=== PATIENT | male | born 1985 | race Caucasian/White ===

== ENCOUNTER 2017-09-11 17:11 | Inpatient (IN) | payer OTHER ==
[2017-09-11] MEDS ORDERED: LACTATED RINGER'S 1,000 ML IV (17:26)
[2017-09-11 17:52] LABS: ABNORMAL IP MESSAGE 1; MEAN CORPUSCULAR HGB CONC 27.8 g/dl (32.0-37.0); MEAN CORPUSCULAR VOLUME 86.5 fl (82.0-101.0); MEAN PLATELET VOLUME 10.9 fl (7.4-10.4); NUCLEATED RED BLOOD CELLS% 1.2 /100WBC (0.0-0.0); PLATELET COUNT 845 10^3/UL (140-415); POSITIVE DIFF @See below; RED BLOOD COUNT 1.04 10^6/ul (4.70-6.10); RED CELL DISTRIBUTION WIDTH 17.5 % (11.5-14.5)
[2017-09-11 17:52] LABS: WHITE BLOOD COUNT 31.4 10^3/ul (4.8-10.8)
[2017-09-11 17:54] LABS: ALANINE AMINOTRANSFERASE 26 IU/L (13-69); ALBUMIN 2.3 g/dl (3.3-4.9); ALBUMIN/GLOBULIN RATIO 0.76; ALKALINE PHOSPHATASE 100 IU/L (42-121); ANION GAP 13 (8-16); ASPARTATE AMINO TRANSFERASE 47 IU/L (15-46); BILIRUBIN,INDIRECT 0.5 mg/dl (0-1.1); BILIRUBIN,TOTAL 0.5 mg/dl (0.2-1.3); BLOOD UREA NITROGEN 14 mg/dl (7-20); CALCIUM 7.5 mg/dl (8.4-10.2); CARBON DIOXIDE 20 mmol/L (21-31); CHLORIDE 105 mmol/L (97-110); CREATININE 0.62 mg/dl (0.61-1.24); GLUCOSE 132 mg/dl (70-220); LIPASE 912 U/L (23-300); POTASSIUM 3.5 mmol/L (3.5-5.1); SODIUM 134 mmol/L (135-144); TOTAL PROTEIN 5.3 g/dl (6.1-8.1)
[2017-09-11 17:55] LABS: LACTIC ACID 4.8 mmol/L (0.5-2.0)
[2017-09-11 17:56] LABS: ADD MAN DIFF? YES; HEMOGLOBIN 2.5 g/dl (14.0-18.0)
[2017-09-11 18:02] LABS: INR 1.32; PROTIME 16.6 Sec (11.9-14.9); PT RATIO 1.3
[2017-09-11 18:03] LABS: PARTIAL THROMBOPLASTIN TIME 21.6 Sec (25.0-35.0)
[2017-09-11] MEDS: ONDANSETRON 4 MG INJ IV (18:20)
[2017-09-11] MEDS: morphine 4 MG/ML VIAL IV (18:20)
[2017-09-11] MEDS: SOD CHLORIDE 0.9% 1,000 ML IV (18:20)
[2017-09-11 18:58] LABS: EOSINOPHILS # 0.6 10^3/ul (0.0-0.5); EOSINOPHILS % (M) 2 % (0.0-7.0); ERYTHROBLAST% (NRBC) (M) 6 % (0-0); LYMPHOCYTES # 1.9 10^3/ul (0.8-2.9); LYMPHOCYTES #M 1.8 10^3/ul (0.8-2.9); LYMPHOCYTES % (M) 6 % (15-51); MONOCYTE # 1.9 10^3/ul (0.3-0.9); MONOCYTE #M 1.8 10^3/ul (0.3-0.9); MONOCYTES % (M) 6 % (0-11); SEGMENTED NEUTROPHILS (M) % 86 % (39-77)
[2017-09-11 18:59] LABS: ANISOCYTOSIS 1+ (0-0); OVALOCYTES FEW (0-0); TEAR DROP CELLS FEW (0-0)
[2017-09-11 19:00] LABS: HYPOCHROMASIA 2+ (0-0)
[2017-09-11] MEDS ORDERED: VANCOMYCIN IV PER PHARMACY XX (19:30)
[2017-09-11] MEDS ORDERED: ONDANSETRON 4 MG INJ IV (19:30)
[2017-09-11] MEDS ORDERED: ACETAMINOPHEN 325 MG TAB PO (19:30)
[2017-09-11 19:44] LABS: RETICULOCYTE COUNT # 0.112 X10^6 (0.020-0.110); RETICULOCYTE COUNT % 10.4 % (0.5-1.5)
[2017-09-11 19:44] LABS: RETICULOCYTE RBC 1.07
[2017-09-11 19:45] LABS: LACTATE DEHYDROGENASE 651 IU/L (313-618)
[2017-09-11 19:46] LABS: IRON 17 ug/dl (35-150)
[2017-09-11 19:52] LABS: ADD UMIC NO; UR ASCORBIC ACID NEGATIVE (NEGATIVE); UR BILIRUBIN (Dip) NEGATIVE (NEGATIVE); UR BLOOD (Dip) NEGATIVE (NEGATIVE); UR CLARITY CLEAR (CLEAR); UR COLOR YELLOW (YELLOW); UR GLUCOSE (Dip) NEGATIVE (NEGATIVE); UR KETONES (Dip) NEGATIVE (NEGATIVE); UR LEUKOCYTE ESTERASE (Dip) NEGATIVE Leu/ul (NEGATIVE); UR NITRITE (Dip) NEGATIVE (NEGATIVE); UR SPECIFIC GRAVITY (Dip) 1.014 (1.003-1.030); UR TOTAL PROTEIN (Dip) NEGATIVE (NEGATIVE); UR UROBILINOGEN (Dip) 2+ mg/dL (NEGATIVE)
[2017-09-11 19:55] LABS: % IRON SATURATION 6 % SAT (22-52); TOTAL IRON BINDING CAPACITY 308 ug/dl (241-421)
[2017-09-11 20:23] LABS: FERRITIN 44.3 ng/ml (17.9-464.0)
[2017-09-11] MEDS: FAMOTIDINE 20 MG INJ IV (20:57)
[2017-09-11] MEDS: CEFTRIAXONE 1 GM/50 ML (PMX) 50 ML IVPB (20:58)
[2017-09-11] MEDS: CEFEPIME 1GM/50 ML (PMX) 50 ML IVPB (21:00)
[2017-09-11] MEDS ORDERED: ACETAMINOPHEN 650MG/20.3ML CUP PO (21:00)
[2017-09-11 21:21] LABS: ETHANOL < 10.0 mg/dl
[2017-09-11] MEDS: DEXTROSE 5%-0.45% NACL 1,000 ML IV (22:17)
[2017-09-11] MEDS: VANCOMYCIN 1.5 GM in SOD CHLORIDE 0.9% 250 ML IVPB (22:29)
[2017-09-11] MEDS: morphine 2 MG INJ IV (22:33)
[2017-09-12 00:42] LABS: IMMEDIATE SPIN CROSSMATCH 1 6
[2017-09-12 04:22] LABS: ADD MAN DIFF? NO
[2017-09-12] MEDS: morphine 2 MG INJ IV ×5 (04:23→20:05)
[2017-09-12 04:25] LABS: ABNORMAL IP MESSAGE 1; BASOPHILS % 0.1 % (0.0-2.0); EOSINOPHILS # 0.1 10^3/ul (0.0-0.5); EOSINOPHILS % 0.4 % (0.0-7.0); HEMATOCRIT 19.9 % (42.0-52.0); LYMPHOCYTES # 3.9 10^3/ul (0.8-2.9); LYMPHOCYTES % 18.9 % (15.0-51.0); MEAN CORPUSCULAR HGB CONC 32.7 g/dl (32.0-37.0); MEAN CORPUSCULAR VOLUME 85.8 fl (82.0-101.0); MEAN PLATELET VOLUME 9.7 fl (7.4-10.4); MONOCYTE # 1.8 10^3/ul (0.3-0.9); NEUTROPHIL # 14.1 10^3/ul (1.6-7.5); NEUTROPHILS % 69.4 % (39.0-77.0); NUCLEATED RED BLOOD CELLS # 0.2 10^3/ul (0.0-0.0); NUCLEATED RED BLOOD CELLS% 0.8 /100WBC (0.0-0.0); PLATELET COUNT 484 10^3/UL (140-415); POSITIVE DIFF @See below; RED BLOOD COUNT 2.32 10^6/ul (4.70-6.10); RED CELL DISTRIBUTION WIDTH 14.4 % (11.5-14.5)
[2017-09-12 04:25] LABS: WHITE BLOOD COUNT 20.4 10^3/ul (4.8-10.8)
[2017-09-12 04:29] LABS: HEMOGLOBIN 6.5 g/dl (14.0-18.0)
[2017-09-12] MEDS: SOD CHLORIDE 0.9% 500 ML IV (04:36)
[2017-09-12 04:55] LABS: LACTIC ACID 1.3 mmol/L (0.5-2.0)
[2017-09-12 04:55] LABS: CREATINE KINASE 80 IU/L (23-200)
[2017-09-12 05:07] LABS: CK INDEX 5.6
[2017-09-12 05:27] LABS: LIPASE 696 U/L (23-300)
[2017-09-12] MEDS: SOD CHLORIDE 0.9% 250 ML IV* (05:32)
[2017-09-12] MEDS ORDERED: PANTOPRAZOLE 40 MG INJ IV ×2 (06:00)
[2017-09-12 06:21] LABS: CREATINE KINASE 79 IU/L (23-200)
[2017-09-12] MEDS: VANCOMYCIN 1 GM 250 ML IVPB (06:21)
[2017-09-12 06:31] LABS: AMPHETAMINE/METHAMPHETAMINE Negative (NEGATIVE); BARBITURATES Negative (NEGATIVE); BENZODIAZEPINES Negative (NEGATIVE); CANNABINOIDS Positive (NEGATIVE); COCAINE Negative (NEGATIVE); OPIATES Positive (NEGATIVE)
[2017-09-12 06:33] LABS: CK INDEX 5.4
[2017-09-12] MEDS: DEXTROSE 5%-0.45% NACL 1,000 ML IV ×2 (08:02→12:26)
[2017-09-12] MEDS: PANTOPRAZOLE IV 80 MG in SOD CHLORIDE 0.9% 100 ML IV ×2 (08:02→16:40)
[2017-09-12] MEDS: FUROSEMIDE 40 MG INJ IV (09:06)
[2017-09-12] MEDS: METOPROLOL 25 MG TAB PO ×2 (10:05→20:04)
[2017-09-12 12:22] LABS: ADD MAN DIFF? NO
[2017-09-12] MEDS: BISACODYL (EC) 5 MG TAB PO (12:26)
[2017-09-12 12:29] LABS: ABNORMAL IP MESSAGE 1; BASOPHIL # 0.1 10^3/ul (0.0-0.1); BASOPHILS % 0.3 % (0.0-2.0); EOSINOPHILS # 0.2 10^3/ul (0.0-0.5); EOSINOPHILS % 0.9 % (0.0-7.0); HEMATOCRIT 28.4 % (42.0-52.0); HEMOGLOBIN 9.4 g/dl (14.0-18.0); LYMPHOCYTES % 9.6 % (15.0-51.0); MEAN CORPUSCULAR HEMOGLOBIN 29.4 pg (29.0-33.0); MEAN CORPUSCULAR HGB CONC 33.1 g/dl (32.0-37.0); MEAN CORPUSCULAR VOLUME 88.8 fl (82.0-101.0); MONOCYTE # 1.9 10^3/ul (0.3-0.9); MONOCYTES % 8.8 % (0.0-11.0); NEUTROPHIL # 16.5 10^3/ul (1.6-7.5); NEUTROPHILS % 77.6 % (39.0-77.0); NUCLEATED RED BLOOD CELLS # 0.3 10^3/ul (0.0-0.0); NUCLEATED RED BLOOD CELLS% 1.6 /100WBC (0.0-0.0); PLATELET COUNT 333 10^3/UL (140-415); POSITIVE DIFF @See below; RED CELL DISTRIBUTION WIDTH 14.5 % (11.5-14.5)
[2017-09-12 12:29] LABS: WHITE BLOOD COUNT 21.2 10^3/ul (4.8-10.8)
[2017-09-12] MEDS: SOD FERRIC GLUC COMPLX 125 MG in SOD CHLORIDE 0.9% 100 ML IVPB (16:40)
[2017-09-12] MEDS: MAGNESIUM CITRATE 300 ML BTL PO (17:48)
[2017-09-12] MEDS: POLYETHYLENE GLYCOL 3350 119 GM POWDER PO (17:54)
[2017-09-12 19:14] LABS: ADD MAN DIFF? NO
[2017-09-12 19:17] LABS: ABNORMAL IP MESSAGE 1; BASOPHILS % 0.1 % (0.0-2.0); EOSINOPHILS # 0.2 10^3/ul (0.0-0.5); EOSINOPHILS % 0.7 % (0.0-7.0); HEMATOCRIT 28.4 % (42.0-52.0); HEMOGLOBIN 9.5 g/dl (14.0-18.0); LYMPHOCYTES # 2.3 10^3/ul (0.8-2.9); LYMPHOCYTES % 11.2 % (15.0-51.0); MEAN CORPUSCULAR HEMOGLOBIN 28.8 pg (29.0-33.0); MEAN CORPUSCULAR HGB CONC 33.5 g/dl (32.0-37.0); MEAN CORPUSCULAR VOLUME 86.1 fl (82.0-101.0); MEAN PLATELET VOLUME 9.4 fl (7.4-10.4); MONOCYTE # 1.8 10^3/ul (0.3-0.9); MONOCYTES % 8.8 % (0.0-11.0); NEUTROPHIL # 15.5 10^3/ul (1.6-7.5); NEUTROPHILS % 77.1 % (39.0-77.0); NUCLEATED RED BLOOD CELLS # 0.3 10^3/ul (0.0-0.0); NUCLEATED RED BLOOD CELLS% 1.4 /100WBC (0.0-0.0); PLATELET COUNT 329 10^3/UL (140-415); POSITIVE DIFF @See below; RED CELL DISTRIBUTION WIDTH 14.6 % (11.5-14.5)
[2017-09-12 19:17] LABS: WHITE BLOOD COUNT 20.1 10^3/ul (4.8-10.8)
[2017-09-12 20:05] LABS: HEPATITIS B SURFACE ANTIGEN NEGATIVE (NEGATIVE)
[2017-09-12 20:23] LABS: HEPATITIS B CORE ANTIBODY NEGATIVE (NEGATIVE); HEPATITIS C VIRAL ANTIBODY NEGATIVE (NEGATIVE)
[2017-09-12] MEDS: ONDANSETRON 4 MG INJ IV (20:28)
[2017-09-12 20:41] LABS: FOLATE 4.7 ng/ml (2.8-20.0)
[2017-09-12 23:18] LABS: ADD MAN DIFF? NO
[2017-09-12 23:19] LABS: WHITE BLOOD COUNT 21.7 10^3/ul (4.8-10.8)
[2017-09-12 23:19] LABS: ABNORMAL IP MESSAGE 1; BASOPHIL # 0.1 10^3/ul (0.0-0.1); BASOPHILS % 0.2 % (0.0-2.0); EOSINOPHILS # 0.1 10^3/ul (0.0-0.5); EOSINOPHILS % 0.6 % (0.0-7.0); HEMATOCRIT 28.9 % (42.0-52.0); HEMOGLOBIN 9.9 g/dl (14.0-18.0); LYMPHOCYTES # 1.9 10^3/ul (0.8-2.9); LYMPHOCYTES % 8.8 % (15.0-51.0); MEAN CORPUSCULAR HGB CONC 34.3 g/dl (32.0-37.0); MEAN CORPUSCULAR VOLUME 84.8 fl (82.0-101.0); MEAN PLATELET VOLUME 9.5 fl (7.4-10.4); MONOCYTES % 9.3 % (0.0-11.0); NEUTROPHIL # 17.1 10^3/ul (1.6-7.5); NUCLEATED RED BLOOD CELLS # 0.2 10^3/ul (0.0-0.0); NUCLEATED RED BLOOD CELLS% 1.1 /100WBC (0.0-0.0); PLATELET COUNT 310 10^3/UL (140-415); POSITIVE DIFF @See below; RED BLOOD COUNT 3.41 10^6/ul (4.70-6.10); RED CELL DISTRIBUTION WIDTH 14.4 % (11.5-14.5)
[2017-09-13] MEDS: morphine 2 MG INJ IV ×6 (01:07→21:54)
[2017-09-13] MEDS: PANTOPRAZOLE IV 80 MG in SOD CHLORIDE 0.9% 100 ML IV ×3 (03:59→22:02)
[2017-09-13] MEDS: DEXTROSE 5%-0.45% NACL 1,000 ML IV (03:59)
[2017-09-13] MEDS: POLYETHYLENE GLYCOL 3350 119 GM POWDER PO (05:52)
[2017-09-13] MEDS: METOPROLOL 25 MG TAB PO ×3 (09:00→21:54)
[2017-09-13] MEDS: BISACODYL (EC) 5 MG TAB PO (09:00)
[2017-09-13] MEDS: NITROGLYCERIN AEROSOL (4.9 GM) (12:24)
[2017-09-13] MEDS: IOHEXOL 350MG/ML 50 ML BTL (12:27)
[2017-09-13] MEDS: SOD CHLORIDE 0.9% 100 ML (12:27)
[2017-09-13] MEDS: IOHEXOL 100 ML (12:27)
[2017-09-13] MEDS: SOD FERRIC GLUC COMPLX 125 MG in SOD CHLORIDE 0.9% 100 ML IVPB (17:19)
[2017-09-13] MEDS ORDERED: HEPARIN 1000 UNITS/ML 10 ML INJ IV ×2 (18:00)
[2017-09-13] MEDS: HEPARIN 25000 UNITS/250 ML 250 ML IV (18:50)
[2017-09-13 18:51] LABS: TRANSFERRIN 202 mg/dL (188-341)
[2017-09-13] MEDS: HEPARIN 1000 UNITS/ML 10 ML INJ IV (18:51)
[2017-09-13 18:55] LABS: HEMATOCRIT 29.4 % (42.0-52.0); HEMOGLOBIN 9.8 g/dl (14.0-18.0)
[2017-09-13 19:15] LABS: PARTIAL THROMBOPLASTIN TIME 38.5 Sec (25.0-35.0)
[2017-09-14] MEDS: DEXTROSE 5%-0.45% NACL 1,000 ML IV ×2 (00:02→09:48)
[2017-09-14 00:37] LABS: PROTEIN, TOTAL 5.1 g/dL (6.1-8.1)
[2017-09-14 02:14] LABS: PARTIAL THROMBOPLASTIN TIME 121.9 Sec (25.0-35.0)
[2017-09-14] MEDS: morphine 2 MG INJ IV ×5 (02:34→20:08)
[2017-09-14] MEDS: HEPARIN 25000 UNITS/250 ML 250 ML IV ×2 (03:08→13:54)
[2017-09-14] MEDS: PANTOPRAZOLE IV 80 MG in SOD CHLORIDE 0.9% 100 ML IV ×2 (05:22→15:50)
[2017-09-14] MEDS ORDERED: PANTOPRAZOLE 40 MG INJ IV (06:00)
[2017-09-14] MEDS: METOPROLOL 25 MG TAB PO ×2 (08:15→20:07)
[2017-09-14 09:44] LABS: ADD MAN DIFF? NO
[2017-09-14 09:47] LABS: ABNORMAL IP MESSAGE 1; BASOPHIL # 0.1 10^3/ul (0.0-0.1); BASOPHILS % 0.4 % (0.0-2.0); EOSINOPHILS # 0.2 10^3/ul (0.0-0.5); HEMATOCRIT 26.5 % (42.0-52.0); HEMOGLOBIN 8.8 g/dl (14.0-18.0); LYMPHOCYTES # 2.1 10^3/ul (0.8-2.9); LYMPHOCYTES % 12.7 % (15.0-51.0); MEAN CORPUSCULAR HGB CONC 33.2 g/dl (32.0-37.0); MEAN CORPUSCULAR VOLUME 87.5 fl (82.0-101.0); MEAN PLATELET VOLUME 10.3 fl (7.4-10.4); MONOCYTE # 1.6 10^3/ul (0.3-0.9); MONOCYTES % 9.7 % (0.0-11.0); NUCLEATED RED BLOOD CELLS # 0.1 10^3/ul (0.0-0.0); NUCLEATED RED BLOOD CELLS% 0.6 /100WBC (0.0-0.0); PLATELET COUNT 275 10^3/UL (140-415); POSITIVE DIFF @See below; RED BLOOD COUNT 3.03 10^6/ul (4.70-6.10); RED CELL DISTRIBUTION WIDTH 14.9 % (11.5-14.5)
[2017-09-14 09:47] LABS: WHITE BLOOD COUNT 16.6 10^3/ul (4.8-10.8)
[2017-09-14 10:06] LABS: ALANINE AMINOTRANSFERASE 41 IU/L (13-69); ALBUMIN 1.9 g/dl (3.3-4.9); ALKALINE PHOSPHATASE 104 IU/L (42-121); ANION GAP 5 (8-16); ASPARTATE AMINO TRANSFERASE 42 IU/L (15-46); BILIRUBIN,INDIRECT 0.5 mg/dl (0-1.1); BILIRUBIN,TOTAL 0.5 mg/dl (0.2-1.3); CALCIUM 7.1 mg/dl (8.4-10.2); CARBON DIOXIDE 24 mmol/L (21-31); CHLORIDE 109 mmol/L (97-110); CREATININE 0.52 mg/dl (0.61-1.24); GLUCOSE 84 mg/dl (70-220); POTASSIUM 3.6 mmol/L (3.5-5.1); SODIUM 134 mmol/L (135-144); TOTAL PROTEIN 4.6 g/dl (6.1-8.1)
[2017-09-14 10:12] LABS: BLOOD UREA NITROGEN < 2 mg/dl (7-20)
[2017-09-14 10:45] LABS: PARTIAL THROMBOPLASTIN TIME 81.5 Sec (25.0-35.0)
[2017-09-14] MEDS: BARIUM SULF 2% 450 ML BTL (BERRY SMOOTHIE) PO (12:47)
[2017-09-14] MEDS: SOD CHLORIDE 0.9% 100 ML (16:32)
[2017-09-14] MEDS: IOHEXOL 300MG/ML 150 ML BTL (16:32)
[2017-09-14] MEDS: SOD FERRIC GLUC COMPLX 125 MG in SOD CHLORIDE 0.9% 100 ML IVPB (17:14)
[2017-09-14 17:29] LABS: HEMATOCRIT 28.3 % (42.0-52.0); HEMOGLOBIN 9.3 g/dl (14.0-18.0)
[2017-09-14 17:50] LABS: PARTIAL THROMBOPLASTIN TIME 37.2 Sec (25.0-35.0)
[2017-09-14] MEDS ORDERED: RIVAROXABAN 15 MG TABLET PO (18:05)
[2017-09-14] MEDS: ENOXAPARIN 100 MG/ML SYG SC (20:12)
[2017-09-14 23:12] LABS: ALBUMIN 2.2 g/dL (3.8-4.8); ALPHA-1-GLOBULINS 0.5 g/dL (0.2-0.3); ALPHA-2-GLOBULINS 0.6 g/dL (0.5-0.9); BETA 2 GLOBULINS 0.4 g/dL (0.2-0.5); BETA GLOBULINS 0.4 g/dL (0.4-0.6); GAMMA GLOBULINS 1.1 g/dL (0.8-1.7)
[2017-09-14 23:19] LABS: HEMATOCRIT 27.6 % (42.0-52.0); HEMOGLOBIN 9.2 g/dl (14.0-18.0)
[2017-09-15] MEDS: morphine 2 MG INJ IV ×4 (00:20→12:30)
[2017-09-15] MEDS: PANTOPRAZOLE IV 80 MG in SOD CHLORIDE 0.9% 100 ML IV ×2 (01:30→11:46)
[2017-09-15] MEDS: SOD CHLORIDE 0.9% 1,000 ML IV (02:21)
[2017-09-15 06:11] LABS: ADD MAN DIFF? NO
[2017-09-15 06:20] LABS: WHITE BLOOD COUNT 16.5 10^3/ul (4.8-10.8)
[2017-09-15 06:20] LABS: BASOPHIL # 0.1 10^3/ul (0.0-0.1); BASOPHILS % 0.4 % (0.0-2.0); EOSINOPHILS # 0.1 10^3/ul (0.0-0.5); EOSINOPHILS % 0.7 % (0.0-7.0); HEMATOCRIT 30.5 % (42.0-52.0); HEMOGLOBIN 9.9 g/dl (14.0-18.0); LYMPHOCYTES # 1.4 10^3/ul (0.8-2.9); LYMPHOCYTES % 8.7 % (15.0-51.0); MEAN CORPUSCULAR HGB CONC 32.5 g/dl (32.0-37.0); MEAN CORPUSCULAR VOLUME 89.4 fl (82.0-101.0); MEAN PLATELET VOLUME 10.7 fl (7.4-10.4); MONOCYTE # 1.4 10^3/ul (0.3-0.9); MONOCYTES % 8.3 % (0.0-11.0); NEUTROPHIL # 12.8 10^3/ul (1.6-7.5); NEUTROPHILS % 77.4 % (39.0-77.0); NUCLEATED RED BLOOD CELLS # 0.1 10^3/ul (0.0-0.0); NUCLEATED RED BLOOD CELLS% 0.3 /100WBC (0.0-0.0); PLATELET COUNT 287 10^3/UL (140-415); RED BLOOD COUNT 3.41 10^6/ul (4.70-6.10); RED CELL DISTRIBUTION WIDTH 16.6 % (11.5-14.5)
[2017-09-15 06:40] LABS: LIPASE 284 U/L (23-300)
[2017-09-15 06:49] LABS: ALANINE AMINOTRANSFERASE 33 IU/L (13-69); ALBUMIN/GLOBULIN RATIO 0.71; ALKALINE PHOSPHATASE 92 IU/L (42-121); ANION GAP 6 (8-16); ASPARTATE AMINO TRANSFERASE 35 IU/L (15-46); BILIRUBIN,INDIRECT 0.6 mg/dl (0-1.1); BILIRUBIN,TOTAL 0.6 mg/dl (0.2-1.3); CALCIUM 7.3 mg/dl (8.4-10.2); CARBON DIOXIDE 20 mmol/L (21-31); CHLORIDE 112 mmol/L (97-110); CREATININE 0.43 mg/dl (0.61-1.24); GLUCOSE 85 mg/dl (70-220); SODIUM 135 mmol/L (135-144); TOTAL PROTEIN 4.8 g/dl (6.1-8.1)
[2017-09-15 06:58] LABS: BLOOD UREA NITROGEN < 2 mg/dl (7-20)
[2017-09-15 07:01] LABS: POTASSIUM 2.8 mmol/L (3.5-5.1)
[2017-09-15 07:44] LABS: MAGNESIUM 2.2 mg/dl (1.7-2.5)
[2017-09-15] MEDS: MAGNESIUM SULFATE 1 GM/D5W 100 ML IVPB (08:22)
[2017-09-15] MEDS: POTASSIUM CHLORIDE 100 ML IVPB ×4 (08:22→14:08)
[2017-09-15] MEDS: METOPROLOL 25 MG TAB PO ×2 (08:23→21:00)
[2017-09-15] MEDS: ENOXAPARIN 100 MG/ML SYG SC ×2 (08:37→21:15)
[2017-09-15] MEDS ORDERED: morphine 10 MG INJ IV (14:30)
[2017-09-15] MEDS: oxyCODONE (CR) 10 MG TAB [oxyCONTIN] PO (15:20)
[2017-09-15] MEDS: PANTOPRAZOLE (EC) 40 MG TAB PO (17:10)
[2017-09-15] MEDS: morphine LIQ (10 MG/5 ML) CUP PO ×2 (17:13→21:06)
[2017-09-16] MEDS: oxyCODONE (CR) 10 MG TAB [oxyCONTIN] PO ×3 (01:00→20:35)
[2017-09-16] MEDS: morphine LIQ (10 MG/5 ML) CUP PO ×6 (01:04→21:34)
[2017-09-16] MEDS: METOPROLOL 25 MG TAB PO ×3 (01:06→20:35)
[2017-09-16] MEDS: PANTOPRAZOLE (EC) 40 MG TAB PO ×2 (06:04→17:22)
[2017-09-16 07:11] LABS: WHITE BLOOD COUNT 26.2 10^3/ul (4.8-10.8)
[2017-09-16 07:11] LABS: ABNORMAL IP MESSAGE 1; HEMATOCRIT 31.1 % (42.0-52.0); HEMOGLOBIN 10.4 g/dl (14.0-18.0); MEAN CORPUSCULAR HEMOGLOBIN 29.5 pg (29.0-33.0); MEAN CORPUSCULAR HGB CONC 33.4 g/dl (32.0-37.0); MEAN CORPUSCULAR VOLUME 88.4 fl (82.0-101.0); MEAN PLATELET VOLUME 10.7 fl (7.4-10.4); PLATELET COUNT 324 10^3/UL (140-415); POSITIVE DIFF @See below; RED BLOOD COUNT 3.52 10^6/ul (4.70-6.10); RED CELL DISTRIBUTION WIDTH 17.6 % (11.5-14.5)
[2017-09-16 07:14] LABS: ADD MAN DIFF? YES
[2017-09-16 07:39] LABS: ALANINE AMINOTRANSFERASE 29 IU/L (13-69); ALBUMIN 2.1 g/dl (3.3-4.9); ALKALINE PHOSPHATASE 98 IU/L (42-121); ANION GAP 10 (8-16); ASPARTATE AMINO TRANSFERASE 33 IU/L (15-46); BILIRUBIN,INDIRECT 0.9 mg/dl (0-1.1); BILIRUBIN,TOTAL 0.9 mg/dl (0.2-1.3); BLOOD UREA NITROGEN 2 mg/dl (7-20); CALCIUM 7.4 mg/dl (8.4-10.2); CARBON DIOXIDE 20 mmol/L (21-31); CHLORIDE 107 mmol/L (97-110); CREATININE 0.45 mg/dl (0.61-1.24); GLUCOSE 83 mg/dl (70-220); POTASSIUM 3.2 mmol/L (3.5-5.1); SODIUM 134 mmol/L (135-144); TOTAL PROTEIN 5.1 g/dl (6.1-8.1)
[2017-09-16] MEDS: BISACODYL (EC) 5 MG TAB PO ×2 (08:29→17:22)
[2017-09-16] MEDS: POLYETHYLENE GLYCOL 3350 119 GM POWDER PO ×2 (08:29→16:03)
[2017-09-16] MEDS: POTASSIUM CHLORIDE (SR) 20 MEQ TAB PO (08:30)
[2017-09-16 08:34] LABS: ANISOCYTOSIS 2+ (0-0); BAND NEUTROPHILS #M 0.2 10^3/ul (0.0-0.6); BAND NEUTROPHILS % (M) 1 % (0-4); EOSINOPHILS % (M) 2 % (0-7); GIANT THROMBO% (M) 3 % (0-0); LYMPHOCYTES #M 0.7 10^3/ul (0.8-2.9); LYMPHOCYTES % (M) 3 % (15-51); METAMYELOCYTES #M 0.2 10^3/ul (0.0-0.0); METAMYELOCYTES %M 1 % (0-0); MONOCYTE #M 0.7 10^3/ul (0.3-0.9); MONOCYTES % (M) 3 % (0-11); MYELOCYTES #M 0.5 10^3/ul (0.0-0.0); MYELOCYTES % (M) 2 % (0-0); OVALOCYTES 1+ (0-0); PLATELET ESTIMATE NORMAL; POIKILOCYTOSIS 1+ (0-0); POLYCHROMASIA 3+ (0-0); SEG NEUT #M 23.1 10^3/ul (1.6-7.5); SEGMENTED NEUTROPHILS (M) % 88 % (39-77); SMUDGE%M 10 % (0-0)
[2017-09-16] MEDS: ENOXAPARIN 100 MG/ML SYG SC ×2 (08:35→20:39)
[2017-09-16] MEDS: MAGNESIUM CITRATE 300 ML BTL PO (09:59)
[2017-09-16] MEDS: PHYTONADIONE 10 MG/ML INJ SC (14:21)
[2017-09-16] MEDS: CEFTRIAXONE 1 GM/50 ML (PMX) 50 ML IVPB (18:33)
[2017-09-16] MEDS: SPIRONOLACTONE 50 MG TAB PO (19:37)
[2017-09-17] MEDS: morphine LIQ (10 MG/5 ML) CUP PO ×5 (01:30→18:45)
[2017-09-17] MEDS: PANTOPRAZOLE (EC) 40 MG TAB PO ×2 (06:03→18:42)
[2017-09-17] MEDS: ENOXAPARIN 100 MG/ML SYG SC ×2 (07:07→21:11)
[2017-09-17] MEDS: oxyCODONE (CR) 10 MG TAB [oxyCONTIN] PO ×2 (09:00→21:06)
[2017-09-17] MEDS: FUROSEMIDE 20 MG TAB PO (09:05)
[2017-09-17] MEDS: SPIRONOLACTONE 50 MG TAB PO (09:05)
[2017-09-17] MEDS: METOPROLOL 25 MG TAB PO ×2 (09:05→21:06)
[2017-09-17] MEDS: POTASSIUM CHLORIDE (SR) 20 MEQ TAB PO (10:03)
[2017-09-17 12:23] LABS: ADD MAN DIFF? NO
[2017-09-17 12:29] LABS: ABNORMAL IP MESSAGE 1; BASOPHIL # 0.1 10^3/ul (0.0-0.1); BASOPHILS % 0.3 % (0.0-2.0); EOSINOPHILS # 0.2 10^3/ul (0.0-0.5); HEMATOCRIT 30.8 % (42.0-52.0); LYMPHOCYTES # 1.9 10^3/ul (0.8-2.9); LYMPHOCYTES % 9.1 % (15.0-51.0); MEAN CORPUSCULAR HEMOGLOBIN 29.7 pg (29.0-33.0); MEAN CORPUSCULAR HGB CONC 32.5 g/dl (32.0-37.0); MEAN CORPUSCULAR VOLUME 91.4 fl (82.0-101.0); MEAN PLATELET VOLUME 10.7 fl (7.4-10.4); MONOCYTE # 2.1 10^3/ul (0.3-0.9); MONOCYTES % 9.8 % (0.0-11.0); NEUTROPHIL # 16.2 10^3/ul (1.6-7.5); NEUTROPHILS % 76.8 % (39.0-77.0); PLATELET COUNT 324 10^3/UL (140-415); POSITIVE DIFF @See below; RED BLOOD COUNT 3.37 10^6/ul (4.70-6.10); RED CELL DISTRIBUTION WIDTH 18.2 % (11.5-14.5)
[2017-09-17 12:48] LABS: ANION GAP 8 (8-16); BLOOD UREA NITROGEN 2 mg/dl (7-20); CALCIUM 7.6 mg/dl (8.4-10.2); CARBON DIOXIDE 21 mmol/L (21-31); CHLORIDE 108 mmol/L (97-110); CREATININE 0.47 mg/dl (0.61-1.24); GLUCOSE 79 mg/dl (70-220); POTASSIUM 4.1 mmol/L (3.5-5.1); SODIUM 133 mmol/L (135-144)
[2017-09-17] MEDS: PROPOFOL 20 ML (16:52)
[2017-09-17] MEDS: FENTAnyl 50 MCG/ML VIAL (16:52)
[2017-09-17] MEDS: MIDAZOLAM 1 MG/ML 2 ML INJ (16:52)
[2017-09-17] MEDS: CEFTRIAXONE 1 GM/50 ML (PMX) 50 ML IVPB (18:43)
[2017-09-18] MEDS: morphine LIQ (10 MG/5 ML) CUP PO ×6 (00:48→21:28)
[2017-09-18] MEDS: PANTOPRAZOLE (EC) 40 MG TAB PO ×2 (05:33→18:04)
[2017-09-18 06:45] LABS: ADD MAN DIFF? NO
[2017-09-18 06:53] LABS: ABNORMAL IP MESSAGE 1; BASOPHIL # 0.1 10^3/ul (0.0-0.1); BASOPHILS % 0.3 % (0.0-2.0); EOSINOPHILS # 0.4 10^3/ul (0.0-0.5); HEMATOCRIT 29.9 % (42.0-52.0); HEMOGLOBIN 9.7 g/dl (14.0-18.0); LYMPHOCYTES # 2.1 10^3/ul (0.8-2.9); LYMPHOCYTES % 11.7 % (15.0-51.0); MEAN CORPUSCULAR HEMOGLOBIN 29.1 pg (29.0-33.0); MEAN CORPUSCULAR HGB CONC 32.4 g/dl (32.0-37.0); MEAN CORPUSCULAR VOLUME 89.8 fl (82.0-101.0); MEAN PLATELET VOLUME 10.8 fl (7.4-10.4); MONOCYTE # 1.7 10^3/ul (0.3-0.9); MONOCYTES % 9.5 % (0.0-11.0); NEUTROPHIL # 13.3 10^3/ul (1.6-7.5); NEUTROPHILS % 73.9 % (39.0-77.0); PLATELET COUNT 333 10^3/UL (140-415); POSITIVE DIFF @See below; RED BLOOD COUNT 3.33 10^6/ul (4.70-6.10); RED CELL DISTRIBUTION WIDTH 17.7 % (11.5-14.5)
[2017-09-18 07:13] LABS: ANION GAP 10 (8-16); CALCIUM 7.4 mg/dl (8.4-10.2); CARBON DIOXIDE 21 mmol/L (21-31); CHLORIDE 107 mmol/L (97-110); CREATININE 0.43 mg/dl (0.61-1.24); GLUCOSE 86 mg/dl (70-220); MAGNESIUM 1.6 mg/dl (1.7-2.5); POTASSIUM 3.5 mmol/L (3.5-5.1); SODIUM 134 mmol/L (135-144)
[2017-09-18 07:20] LABS: BLOOD UREA NITROGEN < 2 mg/dl (7-20)
[2017-09-18 07:39] LABS: CARCINOEMBRYONIC ANTIGEN 0.8 ng/ml (0.0-5.0)
[2017-09-18 07:44] LABS: CANCER ANTIGEN 19-9 52.9 U/ml (0.0-37.0)
[2017-09-18 07:46] LABS: ALPHA FETOPROTEIN 1.77 IU/L (0.00-7.21)
[2017-09-18] MEDS: SPIRONOLACTONE 50 MG TAB PO (08:49)
[2017-09-18] MEDS: FUROSEMIDE 20 MG TAB PO (08:50)
[2017-09-18] MEDS: METOPROLOL 25 MG TAB PO ×2 (08:50→20:14)
[2017-09-18] MEDS: ENOXAPARIN 100 MG/ML SYG SC (08:51)
[2017-09-18] MEDS: oxyCODONE (CR) 10 MG TAB [oxyCONTIN] PO ×2 (08:55→20:15)
[2017-09-18] MEDS: POTASSIUM CHLORIDE (SR) 20 MEQ TAB PO (10:51)
[2017-09-18] MEDS: MAGNESIUM SULFATE 2 GM/50 ML 50 ML IVPB (10:52)
[2017-09-18] MEDS: ONDANSETRON 4 MG INJ IV (11:09)
[2017-09-18] MEDS: LIDOCAINE 1% (MDV) 10 ML INJ (12:44)
[2017-09-18 14:46] LABS: FLD MN% 42.7 %; FLD PMN% 57.3 %; FLD RBC 2000 /uL; FLD WBC 1154 /cmm
[2017-09-18 14:53] LABS: FLUID LD 290 U/L; FLUID TYPE PARACENTESIS FLUID
[2017-09-18 15:38] LABS: FLD TYPE PARACENTHESIS
[2017-09-18 15:39] LABS: FLD CLARITY CLOUDY; FLD COLOR YELLOW
[2017-09-18] MEDS: CEFTRIAXONE 1 GM/50 ML (PMX) 50 ML IVPB (18:03)
[2017-09-18] MEDS: RIVAROXABAN 15 MG TABLET PO (18:04)
[2017-09-19] MEDS: morphine LIQ (10 MG/5 ML) CUP PO ×5 (01:35→18:36)
[2017-09-19] MEDS: PANTOPRAZOLE (EC) 40 MG TAB PO ×2 (06:33→18:36)
[2017-09-19 08:04] LABS: ADD MAN DIFF? NO
[2017-09-19 08:07] LABS: WHITE BLOOD COUNT 9.4 10^3/ul (4.8-10.8)
[2017-09-19 08:07] LABS: BASOPHILS % 0.3 % (0.0-2.0); EOSINOPHILS # 0.2 10^3/ul (0.0-0.5); EOSINOPHILS % 2.3 % (0.0-7.0); HEMATOCRIT 29.3 % (42.0-52.0); HEMOGLOBIN 9.4 g/dl (14.0-18.0); LYMPHOCYTES # 1.4 10^3/ul (0.8-2.9); LYMPHOCYTES % 14.7 % (15.0-51.0); MEAN CORPUSCULAR HEMOGLOBIN 29.3 pg (29.0-33.0); MEAN CORPUSCULAR HGB CONC 32.1 g/dl (32.0-37.0); MEAN CORPUSCULAR VOLUME 91.3 fl (82.0-101.0); MEAN PLATELET VOLUME 10.6 fl (7.4-10.4); MONOCYTE # 0.8 10^3/ul (0.3-0.9); MONOCYTES % 8.9 % (0.0-11.0); NEUTROPHIL # 6.8 10^3/ul (1.6-7.5); NEUTROPHILS % 72.5 % (39.0-77.0); PLATELET COUNT 252 10^3/UL (140-415); RED BLOOD COUNT 3.21 10^6/ul (4.70-6.10); RED CELL DISTRIBUTION WIDTH 17.4 % (11.5-14.5)
[2017-09-19 08:33] LABS: ANION GAP 8 (8-16); CALCIUM 7.1 mg/dl (8.4-10.2); CARBON DIOXIDE 21 mmol/L (21-31); CHLORIDE 107 mmol/L (97-110); CREATININE 0.39 mg/dl (0.61-1.24); GLUCOSE 99 mg/dl (70-220); POTASSIUM 3.3 mmol/L (3.5-5.1); SODIUM 133 mmol/L (135-144)
[2017-09-19 08:36] LABS: BLOOD UREA NITROGEN < 2 mg/dl (7-20)
[2017-09-19] MEDS: METOPROLOL 25 MG TAB PO (09:26)
[2017-09-19] MEDS: SPIRONOLACTONE 50 MG TAB PO (09:26)
[2017-09-19] MEDS: oxyCODONE (CR) 10 MG TAB [oxyCONTIN] PO ×2 (09:26→10:55)
[2017-09-19] MEDS: RIVAROXABAN 15 MG TABLET PO ×2 (09:27→18:36)
[2017-09-19] MEDS: FUROSEMIDE 20 MG TAB PO (09:27)
[2017-09-19] MEDS: POTASSIUM CHLORIDE (SR) 20 MEQ TAB PO (10:54)
[2017-09-19] MEDS: CEFTRIAXONE 1 GM/50 ML (PMX) 50 ML IVPB (18:30)
[2017-09-21 18:02] LABS: DRVVT CONFIRMATION NEGATIVE (NEGATIVE); HEXAGONAL PHASE CONFIRMATION POSITIVE (NEGATIVE); THROMBIN CLOTTING TIME 21 sec (13-19)
[2017-09-22 20:21] LABS: ANTI-THROMBIN III 16 mg/dL (19-30)
== END 2017-09-19 20:11 | disposition home or self-care (01) | DRG 377 ==
LOC: ICU 21:12 → MS4 09-13 11:39 → E/R 17:11 → ICU 19:14
PROC: 0DJD8ZZ Inspection of Lower Intestinal Tract, Via Natural or Artificial Opening Endoscopic (ICD-10-PCS; principal; 2017-09-17 15:11)
PROC: 0DB98ZX Excision of Duodenum, Via Natural or Artificial Opening Endoscopic, Diagnostic (ICD-10-PCS; 2017-09-17 15:11)
PROC: 0DB78ZX Excision of Stomach, Pylorus, Via Natural or Artificial Opening Endoscopic, Diagnostic (ICD-10-PCS; 2017-09-17 15:11)
PROC: 0DB68ZX Excision of Stomach, Via Natural or Artificial Opening Endoscopic, Diagnostic (ICD-10-PCS; 2017-09-17 15:11)
PROC: 0W9G3ZX Drainage of Peritoneal Cavity, Percutaneous Approach, Diagnostic (ICD-10-PCS; 2017-09-17 15:11)
PROC: 30233N1 Transfusion of Nonautologous Red Blood Cells into Peripheral Vein, Percutaneous Approach (ICD-10-PCS; 2017-09-17 15:11)
PROC: 30233N1 Transfusion of Nonautologous Red Blood Cells into Peripheral Vein, Percutaneous Approach (ICD-10-PCS; 2017-09-17 15:11)
DX: K92.2 Gastrointestinal hemorrhage, unspecified (principal); I21.A1 Myocardial infarction type 2; I26.99 Other pulmonary embolism without acute cor pulmonale; K85.20 Alcohol induced acute pancreatitis without necrosis or infection; D62 Acute posthemorrhagic anemia; E87.2 Acidosis; I48.92 Unspecified atrial flutter; R65.10 Systemic inflammatory response syndrome (SIRS) of non-infectious origin without acute organ dysfunction; R16.1 Splenomegaly, not elsewhere classified; K70.31 Alcoholic cirrhosis of liver with ascites; D47.3 Essential (hemorrhagic) thrombocythemia; D50.0 Iron deficiency anemia secondary to blood loss (chronic); I10 Essential (primary) hypertension; G40.909 Epilepsy, unspecified, not intractable, without status epilepticus; E78.5 Hyperlipidemia, unspecified; F12.20 Cannabis dependence, uncomplicated; F10.20 Alcohol dependence, uncomplicated; K29.50 Unspecified chronic gastritis without bleeding; K44.9 Diaphragmatic hernia without obstruction or gangrene; Y90.0 Blood alcohol level of less than 20 mg/100 ml; E87.6 Hypokalemia; Z79.02 Long term (current) use of antithrombotics/antiplatelets
CPT/HCPCS: 36415; 36430; 71045; 71275; 74177; 74181; 75574; 80048; 80053; 80307; 81003; 82042; 82105; 82378; 82550; 82553; 82607; 82728; 82746; 83090; 83540; 83605; 83615; 83690; 83735; 84155; 84165; 84466; 84484; 85014; 85018; 85025; 85045; 85300; 85302; 85610; 85613; 85730; 86301; 86704; 86803; 86850; 86880; 86900; 86901; 86920; 87040; 87070; 87081; 87086; 87102; 87116; 87340; 88305; 88312; 89051; 93005; 93306; 93970; 96374; 96375; 97161; 99291-25

== ENCOUNTER 2017-10-21 17:44 | Inpatient (IN) | payer OTHER ==
[2017-10-21] MEDS: SOD CHLORIDE 0.9% 1,000 ML IV ×3 (18:30→23:15)
[2017-10-21] MEDS: PANTOPRAZOLE 40 MG INJ IV (18:30)
[2017-10-21] MEDS: morphine 4 MG/ML VIAL IV (18:32)
[2017-10-21 18:39] LABS: HEMATOCRIT 39.2 % (42.0-52.0); HEMOGLOBIN 12.4 g/dl (14.0-18.0); MEAN CORPUSCULAR HEMOGLOBIN 26.1 pg (29.0-33.0); MEAN CORPUSCULAR HGB CONC 31.6 g/dl (32.0-37.0); MEAN CORPUSCULAR VOLUME 82.4 fl (82.0-101.0); MEAN PLATELET VOLUME 8.9 fl (7.4-10.4); PLATELET COUNT 835 10^3/UL (140-415); RED BLOOD COUNT 4.76 10^6/ul (4.70-6.10); RED CELL DISTRIBUTION WIDTH 15.9 % (11.5-14.5)
[2017-10-21 18:39] LABS: WHITE BLOOD COUNT 13.3 10^3/ul (4.8-10.8)
[2017-10-21 18:43] LABS: ADD MAN DIFF? YES
[2017-10-21 18:57] LABS: ALANINE AMINOTRANSFERASE 32 IU/L (13-69); ALBUMIN/GLOBULIN RATIO 0.85; ALKALINE PHOSPHATASE 216 IU/L (42-121); ANION GAP 22 (8-16); ASPARTATE AMINO TRANSFERASE 88 IU/L (15-46); BILIRUBIN,INDIRECT 0.5 mg/dl (0-1.1); BILIRUBIN,TOTAL 0.5 mg/dl (0.2-1.3); BLOOD UREA NITROGEN 3 mg/dl (7-20); CALCIUM 9.1 mg/dl (8.4-10.2); CARBON DIOXIDE 23 mmol/L (21-31); CHLORIDE 109 mmol/L (97-110); CREATININE 0.63 mg/dl (0.61-1.24); GLUCOSE 141 mg/dl (70-220); LIPASE 624 U/L (23-300); POTASSIUM 4.1 mmol/L (3.5-5.1); SODIUM 150 mmol/L (135-144); TOTAL PROTEIN 8.7 g/dl (6.1-8.1)
[2017-10-21 18:59] LABS: INR 1.14; PROTIME 14.8 Sec (11.9-14.9); PT RATIO 1.2
[2017-10-21 19:00] LABS: PARTIAL THROMBOPLASTIN TIME 29.7 Sec (25.0-35.0)
[2017-10-21 19:09] LABS: BAND NEUTROPHILS #M 0.2 10^3/ul (0.0-0.6); BAND NEUTROPHILS % (M) 2 % (0-4); EOSINOPHILS % (M) 1 % (0-7); LYMPHOCYTES #M 4.3 10^3/ul (0.8-2.9); LYMPHOCYTES % (M) 33 % (15-51); MONOCYTE #M 0.3 10^3/ul (0.3-0.9); MONOCYTES % (M) 3 % (0-11); PLATELET ESTIMATE NORMAL; SEG NEUT #M 8.1 10^3/ul (1.6-7.5); SEGMENTED NEUTROPHILS (M) % 61 % (39-77); SMUDGE%M 14 % (0-0)
[2017-10-21 19:11] LABS: TROPONIN-I < 0.010 ng/ml (0.000-0.120)
[2017-10-21] MEDS: DEXTROSE 5%-LR 1,000 ML IV (19:36)
[2017-10-21] MEDS: SOD CHLORIDE 0.9% 100 ML (19:42)
[2017-10-21] MEDS: IOHEXOL 300MG/ML 150 ML BTL (19:42)
[2017-10-21 19:45] LABS: ADD UMIC NO; UR ASCORBIC ACID NEGATIVE (NEGATIVE); UR BILIRUBIN (Dip) NEGATIVE (NEGATIVE); UR BLOOD (Dip) NEGATIVE (NEGATIVE); UR CLARITY CLEAR (CLEAR); UR COLOR YELLOW (YELLOW); UR GLUCOSE (Dip) NEGATIVE (NEGATIVE); UR KETONES (Dip) NEGATIVE (NEGATIVE); UR LEUKOCYTE ESTERASE (Dip) NEGATIVE Leu/ul (NEGATIVE); UR NITRITE (Dip) NEGATIVE (NEGATIVE); UR SPECIFIC GRAVITY (Dip) 1.009 (1.003-1.030); UR TOTAL PROTEIN (Dip) NEGATIVE (NEGATIVE); UR UROBILINOGEN (Dip) 2+ mg/dL (NEGATIVE)
[2017-10-21] MEDS: HYDROmorphONE 0.5 MG/0.5 ML SYG IV ×2 (20:19→21:59)
[2017-10-21] MEDS ORDERED: ACETAMINOPHEN 325 MG TAB PO (21:30)
[2017-10-21] MEDS: METOCLOPRAMIDE 10 MG INJ IV (21:38)
[2017-10-21] MEDS: ONDANSETRON 4 MG INJ IV (21:59)
[2017-10-22] MEDS: traMADol 50 MG TAB PO ×3 (00:09→17:15)
[2017-10-22] MEDS: ONDANSETRON 4 MG INJ IV ×2 (00:59→13:04)
[2017-10-22] MEDS: morphine 2 MG INJ IV ×4 (01:32→15:17)
[2017-10-22] MEDS: SOD CHLORIDE 0.9% 1,000 ML IV ×2 (01:33→03:24)
[2017-10-22] MEDS: DEXTROSE 5% 1,000 ML IV (06:12)
[2017-10-22] MEDS ORDERED: DILTIAZEM-D5W 125MG/125ML DRIP 125 ML IV (07:00)
[2017-10-22 07:29] LABS: ADD MAN DIFF? NO
[2017-10-22 07:36] LABS: BASOPHILS % 0.2 % (0.0-2.0); HEMATOCRIT 30.8 % (42.0-52.0); HEMOGLOBIN 9.6 g/dl (14.0-18.0); LYMPHOCYTES # 0.9 10^3/ul (0.8-2.9); LYMPHOCYTES % 9.1 % (15.0-51.0); MEAN CORPUSCULAR HEMOGLOBIN 26.3 pg (29.0-33.0); MEAN CORPUSCULAR HGB CONC 31.2 g/dl (32.0-37.0); MEAN CORPUSCULAR VOLUME 84.4 fl (82.0-101.0); MONOCYTE # 0.8 10^3/ul (0.3-0.9); MONOCYTES % 8.1 % (0.0-11.0); NEUTROPHIL # 7.8 10^3/ul (1.6-7.5); NEUTROPHILS % 82.2 % (39.0-77.0); PLATELET COUNT 358 10^3/UL (140-415); RED BLOOD COUNT 3.65 10^6/ul (4.70-6.10); RED CELL DISTRIBUTION WIDTH 15.4 % (11.5-14.5)
[2017-10-22 07:36] LABS: WHITE BLOOD COUNT 9.4 10^3/ul (4.8-10.8)
[2017-10-22 08:19] LABS: ALANINE AMINOTRANSFERASE 21 IU/L (13-69); ALBUMIN 3.2 g/dl (3.3-4.9); ALKALINE PHOSPHATASE 177 IU/L (42-121); ANION GAP 17 (8-16); ASPARTATE AMINO TRANSFERASE 62 IU/L (15-46); BILIRUBIN,INDIRECT 0.8 mg/dl (0-1.1); BILIRUBIN,TOTAL 0.8 mg/dl (0.2-1.3); BLOOD UREA NITROGEN 2 mg/dl (7-20); CALCIUM 8.3 mg/dl (8.4-10.2); CARBON DIOXIDE 23 mmol/L (21-31); CHLORIDE 106 mmol/L (97-110); CREATININE 0.49 mg/dl (0.61-1.24); GLUCOSE 118 mg/dl (70-220); SODIUM 142 mmol/L (135-144); TOTAL PROTEIN 7.2 g/dl (6.1-8.1)
[2017-10-22] MEDS: FERROUS SULFATE (EC) 325 MG TAB PO ×2 (08:19→21:04)
[2017-10-22] MEDS: FUROSEMIDE 20 MG TAB PO (08:20)
[2017-10-22] MEDS: METOPROLOL 25 MG TAB PO ×2 (08:20→21:04)
[2017-10-22] MEDS: POTASSIUM CHLORIDE 20 MEQ POWDER FOR ORAL SOLN PO (08:21)
[2017-10-22] MEDS: SPIRONOLACTONE 50 MG TAB PO (09:00)
[2017-10-22] MEDS ORDERED: MEROPENEM 500MG/50 ML (PMX) 50 ML IVPB (10:30)
[2017-10-22] MEDS: HYDROCODONE/APAP (10/325) TAB PO (13:05)
[2017-10-22 18:35] LABS: FREE T4 (FREE THYROXINE) 1.08 ng/dl (0.79-2.35)
[2017-10-22] MEDS: HYDROmorphONE 1 MG/ML SYG IV (21:04)
[2017-10-23] MEDS: HYDROmorphONE 1 MG/ML SYG IV ×2 (01:13→05:29)
[2017-10-23 04:56] LABS: ADD MAN DIFF? NO
[2017-10-23 04:57] LABS: BASOPHILS % 0.2 % (0.0-2.0); EOSINOPHILS % 0.2 % (0.0-7.0); HEMATOCRIT 30.6 % (42.0-52.0); HEMOGLOBIN 9.8 g/dl (14.0-18.0); LYMPHOCYTES # 0.9 10^3/ul (0.8-2.9); LYMPHOCYTES % 10.4 % (15.0-51.0); MEAN CORPUSCULAR HEMOGLOBIN 26.9 pg (29.0-33.0); MEAN CORPUSCULAR VOLUME 84.1 fl (82.0-101.0); MEAN PLATELET VOLUME 9.1 fl (7.4-10.4); MONOCYTE # 0.6 10^3/ul (0.3-0.9); MONOCYTES % 6.9 % (0.0-11.0); NEUTROPHIL # 7.2 10^3/ul (1.6-7.5); PLATELET COUNT 242 10^3/UL (140-415); RED BLOOD COUNT 3.64 10^6/ul (4.70-6.10); RED CELL DISTRIBUTION WIDTH 15.3 % (11.5-14.5)
[2017-10-23 04:57] LABS: WHITE BLOOD COUNT 8.8 10^3/ul (4.8-10.8)
[2017-10-23 05:19] LABS: LIPASE 81 U/L (23-300)
[2017-10-23] MEDS: FERROUS SULFATE (EC) 325 MG TAB PO (08:21)
[2017-10-23] MEDS: POTASSIUM CHLORIDE 20 MEQ POWDER FOR ORAL SOLN PO (08:21)
[2017-10-23] MEDS: METOPROLOL 25 MG TAB PO (08:21)
[2017-10-23] MEDS: traMADol 50 MG TAB PO (12:13)
== END 2017-10-23 15:16 | disposition home or self-care (01) | DRG 439 ==
LOC: PP2 22:21 → E/R 17:44 → PP2 10-22 17:35 → MS4 21:29
DX: K85.20 Alcohol induced acute pancreatitis without necrosis or infection (principal); K86.3 Pseudocyst of pancreas; E87.0 Hyperosmolality and hypernatremia; I48.92 Unspecified atrial flutter; R65.10 Systemic inflammatory response syndrome (SIRS) of non-infectious origin without acute organ dysfunction; D50.9 Iron deficiency anemia, unspecified; F10.20 Alcohol dependence, uncomplicated; K70.31 Alcoholic cirrhosis of liver with ascites; E86.0 Dehydration; G40.909 Epilepsy, unspecified, not intractable, without status epilepticus; I10 Essential (primary) hypertension; E78.5 Hyperlipidemia, unspecified; F17.210 Nicotine dependence, cigarettes, uncomplicated; Z79.02 Long term (current) use of antithrombotics/antiplatelets; Z86.711 Personal history of pulmonary embolism
CPT/HCPCS: 36415; 74177; 80053; 81003; 83690; 84439; 84443; 84484; 85025; 85610; 85730; 86850; 86900; 86901; 87081; 93005; 96374; 96375; 99291-25

== ENCOUNTER 2018-03-01 17:47 | Emergency (ER) | payer OTHER ==
[2018-03-01 18:24] LABS: ADD MAN DIFF? NO
[2018-03-01 18:30] LABS: BASOPHILS % 0.6 % (0.0-2.0); EOSINOPHILS % 0.3 % (0.0-7.0); HEMATOCRIT 41.3 % (42.0-52.0); HEMOGLOBIN 14.1 g/dl (14.0-18.0); LYMPHOCYTES # 1.6 10^3/ul (0.8-2.9); MEAN CORPUSCULAR HEMOGLOBIN 27.8 pg (29.0-33.0); MEAN CORPUSCULAR HGB CONC 34.1 g/dl (32.0-37.0); MEAN CORPUSCULAR VOLUME 81.5 fl (82.0-101.0); MEAN PLATELET VOLUME 9.7 fl (7.4-10.4); MONOCYTE # 0.7 10^3/ul (0.3-0.9); MONOCYTES % 10.2 % (0.0-11.0); NEUTROPHIL # 4.4 10^3/ul (1.6-7.5); NEUTROPHILS % 64.6 % (39.0-77.0); PLATELET COUNT 428 10^3/UL (140-415); RED BLOOD COUNT 5.07 10^6/ul (4.70-6.10); RED CELL DISTRIBUTION WIDTH 15.7 % (11.5-14.5)
[2018-03-01 18:30] LABS: WHITE BLOOD COUNT 6.8 10^3/ul (4.8-10.8)
[2018-03-01] MEDS: LORAZEPAM 2 MG INJ IV (18:40)
[2018-03-01] MEDS: SOD CHLORIDE 0.9% 1,000 ML IV (18:41)
[2018-03-01] MEDS: ONDANSETRON 4 MG INJ IV (18:41)
[2018-03-01] MEDS: KETOROLAC 15 MG INJ IV (18:41)
[2018-03-01 18:49] LABS: INR 0.97
[2018-03-01 18:50] LABS: PARTIAL THROMBOPLASTIN TIME 24.3 Sec (23.0-35.0)
[2018-03-01 18:51] LABS: ALANINE AMINOTRANSFERASE 78 IU/L (13-69); ALBUMIN 4.5 g/dl (3.3-4.9); ALBUMIN/GLOBULIN RATIO 1.36; ALKALINE PHOSPHATASE 105 IU/L (42-121); ANION GAP 21 (5-13); ASPARTATE AMINO TRANSFERASE 84 IU/L (15-46); BILIRUBIN,INDIRECT 0.8 mg/dl (0-1.1); BILIRUBIN,TOTAL 0.8 mg/dl (0.2-1.3); BLOOD UREA NITROGEN 5 mg/dl (7-20); CALCIUM 9.1 mg/dl (8.4-10.2); CARBON DIOXIDE 22 mmol/L (21-31); CHLORIDE 96 mmol/L (97-110); CREATININE 0.81 mg/dl (0.61-1.24); Estimated GFR > 60 mL/min (>60); GLUCOSE 135 mg/dl (70-220); LIPASE 118 U/L (23-300); POTASSIUM 3.5 mmol/L (3.5-5.1); SODIUM 139 mmol/L (135-144); TOTAL PROTEIN 7.8 g/dl (6.1-8.1)
[2018-03-01 19:02] LABS: TROPONIN-I < 0.012 ng/ml (0.000-0.120)
[2018-03-01] MEDS: MULTIVITAMINS 10 ML, THIAMINE 100 MG, FOLIC ACID 1 MG, MAGNESIUM SULFATE 2 GM in SOD CH... IV (20:45)
== END 2018-03-01 22:45 | disposition home or self-care (01) ==
LOC: E/R 22:45
DX: F10.121 Alcohol abuse with intoxication delirium (principal); I10 Essential (primary) hypertension; R40.2252 Coma scale, best verbal response, oriented, at arrival to emergency department; R40.2142 Coma scale, eyes open, spontaneous, at arrival to emergency department; R40.2362 Coma scale, best motor response, obeys commands, at arrival to emergency department; R10.13 Epigastric pain
CPT/HCPCS: 71045; 80053; 80307; 83690; 84484; 85025; 85610; 85730; 86850; 86900; 86901; 93005; 96374; 96375; 99285-25

== ENCOUNTER 2018-03-04 17:03 | Inpatient (IN) | payer OTHER ==
[2018-03-04 18:39] LABS: ADD MAN DIFF? NO
[2018-03-04 18:43] LABS: WHITE BLOOD COUNT 23.8 10^3/ul (4.8-10.8)
[2018-03-04 18:43] LABS: ABNORMAL IP MESSAGE 1; BASOPHIL # 0.1 10^3/ul (0.0-0.1); BASOPHILS % 0.3 % (0.0-2.0); EOSINOPHILS % 0.1 % (0.0-7.0); HEMATOCRIT 42.4 % (42.0-52.0); HEMOGLOBIN 14.7 g/dl (14.0-18.0); LYMPHOCYTES # 2.4 10^3/ul (0.8-2.9); LYMPHOCYTES % 9.9 % (15.0-51.0); MEAN CORPUSCULAR HEMOGLOBIN 28.1 pg (29.0-33.0); MEAN CORPUSCULAR HGB CONC 34.7 g/dl (32.0-37.0); MEAN CORPUSCULAR VOLUME 80.9 fl (82.0-101.0); MEAN PLATELET VOLUME 9.7 fl (7.4-10.4); MONOCYTE # 2.1 10^3/ul (0.3-0.9); MONOCYTES % 8.7 % (0.0-11.0); NEUTROPHIL # 19.1 10^3/ul (1.6-7.5); NEUTROPHILS % 80.2 % (39.0-77.0); PLATELET COUNT 209 10^3/UL (140-415); POSITIVE DIFF @See below; RED BLOOD COUNT 5.24 10^6/ul (4.70-6.10); RED CELL DISTRIBUTION WIDTH 15.7 % (11.5-14.5)
[2018-03-04 18:44] LABS: ADD UMIC NO; UR ASCORBIC ACID NEGATIVE (NEGATIVE); UR BILIRUBIN (Dip) NEGATIVE (NEGATIVE); UR BLOOD (Dip) NEGATIVE (NEGATIVE); UR CLARITY CLEAR (CLEAR); UR COLOR YELLOW (YELLOW); UR GLUCOSE (Dip) NEGATIVE (NEGATIVE); UR KETONES (Dip) TRACE mg/dL (NEGATIVE); UR LEUKOCYTE ESTERASE (Dip) NEGATIVE Leu/ul (NEGATIVE); UR NITRITE (Dip) NEGATIVE (NEGATIVE); UR SPECIFIC GRAVITY (Dip) 1.003 (1.003-1.030); UR TOTAL PROTEIN (Dip) NEGATIVE (NEGATIVE); UR UROBILINOGEN (Dip) NEGATIVE (NEGATIVE)
[2018-03-04 19:18] LABS: ALANINE AMINOTRANSFERASE 62 IU/L (13-69); ALBUMIN 4.4 g/dl (3.3-4.9); ALBUMIN/GLOBULIN RATIO 1.33; ALKALINE PHOSPHATASE 110 IU/L (42-121); ASPARTATE AMINO TRANSFERASE 134 IU/L (15-46); BILIRUBIN,INDIRECT 1.2 mg/dl (0-1.1); BILIRUBIN,TOTAL 1.2 mg/dl (0.2-1.3); BLOOD UREA NITROGEN 5 mg/dl (7-20); CALCIUM 9.8 mg/dl (8.4-10.2); CARBON DIOXIDE 19 mmol/L (21-31); CREATININE 0.81 mg/dl (0.61-1.24); Estimated GFR > 60 mL/min (>60); GLUCOSE 71 mg/dl (70-220); INR 1.04; PROTIME 13.7 Sec (11.9-14.9); PT RATIO 1.1; SODIUM 137 mmol/L (135-144); TOTAL PROTEIN 7.7 g/dl (6.1-8.1)
[2018-03-04 19:19] LABS: PARTIAL THROMBOPLASTIN TIME 26.1 Sec (23.0-35.0)
[2018-03-04 19:28] LABS: POTASSIUM 2.9 mmol/L (3.5-5.1)
[2018-03-04 19:29] LABS: ACETAMINOPHEN < 10.0 ug/ml (10.0-30.0); SALICYLATE < 1.0 mg/dl (5.0-30.0)
[2018-03-04] MEDS: IOHEXOL 350MG/ML 50 ML BTL (19:56)
[2018-03-04] MEDS: IOHEXOL 100 ML (19:57)
[2018-03-04] MEDS: SOD CHLORIDE 0.9% 100 ML (19:57)
[2018-03-04 20:02] LABS: LACTIC ACID 3.3 mmol/L (0.5-2.0)
[2018-03-04 20:05] LABS: TROPONIN-I < 0.012 ng/ml (0.000-0.120)
[2018-03-04 20:08] LABS: AMPHETAMINE/METHAMPHETAMINE Negative (NEGATIVE); BARBITURATES Negative (NEGATIVE); BENZODIAZEPINES Negative (NEGATIVE); CANNABINOIDS Positive (NEGATIVE); COCAINE Negative (NEGATIVE); OPIATES Negative (NEGATIVE)
[2018-03-04 20:09] LABS: MAGNESIUM 1.5 mg/dl (1.7-2.5)
[2018-03-04] MEDS: HYDROCODONE/APAP (10/325) TAB PO (20:11)
[2018-03-04] MEDS: POTASSIUM CHLORIDE (SR) 20 MEQ TAB PO (20:11)
[2018-03-04] MEDS: VANCOMYCIN 1 GM (PMX) 250 ML IVPB (20:13)
[2018-03-04] MEDS: SOD CHLORIDE 0.9% IV (20:14)
[2018-03-04 20:22] LABS: ANION GAP 18 (5-13); CHLORIDE 100 mmol/L (97-110)
[2018-03-04] MEDS: CEFTRIAXONE 2 GM/50 ML (PMX) 50 ML IVPB (20:30)
[2018-03-04 22:14] LABS: CSF RBC 0 /uL (0-0); CSF WBC 1 /cmm (0-10)
[2018-03-04 22:16] LABS: CSF RBC 0 /uL (0-0); CSF WBC 2 /cmm (0-10)
[2018-03-04 22:22] LABS: TOTAL PROTEIN,CSF 37 mg/dl (12-60)
[2018-03-04 22:22] LABS: GLUCOSE,CSF 44 mg/dl (50-80)
[2018-03-04 22:28] LABS: CSF COLOR COLORLESS
[2018-03-04 22:28] LABS: CSF CLARITY CLEAR; CSF#TUBES REC'D 4
[2018-03-04 22:29] LABS: CSF#TUBE COUNT TUBE#4
[2018-03-04 22:30] LABS: CSF CLARITY CLEAR; CSF COLOR COLORLESS
[2018-03-04 22:31] LABS: CSF#TUBE COUNT TUBE#1; CSF#TUBES REC'D 4
[2018-03-04] MEDS: MAGNESIUM SULFATE 2 GM/50 ML 50 ML IVPB (23:41)
[2018-03-05 01:01] LABS: LACTIC ACID 2.7 mmol/L (0.5-2.0)
[2018-03-05] MEDS ORDERED: ONDANSETRON 4 MG INJ IV (02:00)
[2018-03-05] MEDS: SOD CHLORIDE 0.9% 1,000 ML IV (02:22)
[2018-03-05] MEDS: MAGNESIUM SULFATE 4 GM/100 ML 100 ML IVPB (02:46)
[2018-03-05] MEDS: THIAMINE 200 MG INJ IM (02:46)
[2018-03-05 06:16] LABS: ADD MAN DIFF? NO
[2018-03-05 06:29] LABS: WHITE BLOOD COUNT 9.7 10^3/ul (4.8-10.8)
[2018-03-05 06:29] LABS: BASOPHILS % 0.2 % (0.0-2.0); EOSINOPHILS % 0.3 % (0.0-7.0); HEMATOCRIT 34.2 % (42.0-52.0); HEMOGLOBIN 11.5 g/dl (14.0-18.0); LYMPHOCYTES # 1.4 10^3/ul (0.8-2.9); LYMPHOCYTES % 14.8 % (15.0-51.0); MEAN CORPUSCULAR HEMOGLOBIN 27.9 pg (29.0-33.0); MEAN CORPUSCULAR HGB CONC 33.6 g/dl (32.0-37.0); MEAN PLATELET VOLUME 10.2 fl (7.4-10.4); MONOCYTE # 1.2 10^3/ul (0.3-0.9); MONOCYTES % 12.3 % (0.0-11.0); NEUTROPHILS % 71.9 % (39.0-77.0); PLATELET COUNT 138 10^3/UL (140-415); RED BLOOD COUNT 4.12 10^6/ul (4.70-6.10)
[2018-03-05 06:37] LABS: LACTIC ACID 0.8 mmol/L (0.5-2.0)
[2018-03-05 07:06] LABS: ALANINE AMINOTRANSFERASE 53 IU/L (13-69); ALBUMIN 3.3 g/dl (3.3-4.9); ALBUMIN/GLOBULIN RATIO 1.26; ALKALINE PHOSPHATASE 70 IU/L (42-121); ANION GAP 13 (5-13); ASPARTATE AMINO TRANSFERASE 88 IU/L (15-46); BILIRUBIN,INDIRECT 0.8 mg/dl (0-1.1); BILIRUBIN,TOTAL 0.8 mg/dl (0.2-1.3); BLOOD UREA NITROGEN 6 mg/dl (7-20); CALCIUM 7.8 mg/dl (8.4-10.2); CARBON DIOXIDE 20 mmol/L (21-31); CHLORIDE 105 mmol/L (97-110); CREATININE 0.65 mg/dl (0.61-1.24); Estimated GFR > 60 mL/min (>60); GLUCOSE 73 mg/dl (70-220); POTASSIUM 3.2 mmol/L (3.5-5.1); SODIUM 138 mmol/L (135-144); TOTAL PROTEIN 5.9 g/dl (6.1-8.1)
[2018-03-05] MEDS: THIAMINE 100 MG TAB PO (08:11)
[2018-03-05] MEDS: FOLIC ACID 1 MG TAB PO (08:11)
[2018-03-05] MEDS: METOPROLOL 50 MG TAB PO ×2 (08:11→20:03)
[2018-03-05 09:50] LABS: LIPASE 151 U/L (23-300)
[2018-03-05 09:50] LABS: AMYLASE 85 U/L (11-123)
[2018-03-05] MEDS: POTASSIUM CHLORIDE (SR) 20 MEQ TAB PO (10:48)
[2018-03-05] MEDS: MULTIVITAMINS THERAPEUTIC TAB PO (10:53)
[2018-03-05] MEDS: LORAZEPAM 2 MG INJ IV ×4 (10:54→22:26)
[2018-03-05] MEDS ORDERED: MAGNESIUM SULFATE 4 GM/100 ML 100 ML IVPB (11:00)
[2018-03-05 11:15] LABS: MAGNESIUM 2.4 mg/dl (1.7-2.5)
[2018-03-05] MEDS: INFLUENZA VIRUS VACCINE 0.5 ML (DISPENSING) IM* (12:18)
[2018-03-05 12:22] LABS: FOLATE > 20.0 ng/ml (2.8-20.0)
[2018-03-05] MEDS: RIVAROXABAN 20 MG TABLET PO (17:57)
[2018-03-05] MEDS: ACETAMINOPHEN 325 MG TAB PO (19:55)
[2018-03-06] MEDS: LORAZEPAM 2 MG INJ IV ×2 (00:51→08:00)
[2018-03-06 07:16] LABS: ADD MAN DIFF? NO
[2018-03-06 07:27] LABS: WHITE BLOOD COUNT 6.1 10^3/ul (4.8-10.8)
[2018-03-06 07:27] LABS: BASOPHILS % 0.2 % (0.0-2.0); EOSINOPHILS # 0.1 10^3/ul (0.0-0.5); EOSINOPHILS % 1.3 % (0.0-7.0); HEMATOCRIT 35.1 % (42.0-52.0); HEMOGLOBIN 11.9 g/dl (14.0-18.0); LYMPHOCYTES # 0.9 10^3/ul (0.8-2.9); LYMPHOCYTES % 14.7 % (15.0-51.0); MEAN CORPUSCULAR HEMOGLOBIN 28.5 pg (29.0-33.0); MEAN CORPUSCULAR HGB CONC 33.9 g/dl (32.0-37.0); MEAN PLATELET VOLUME 10.2 fl (7.4-10.4); MONOCYTE # 0.9 10^3/ul (0.3-0.9); MONOCYTES % 13.9 % (0.0-11.0); NEUTROPHIL # 4.3 10^3/ul (1.6-7.5); NEUTROPHILS % 69.4 % (39.0-77.0); PLATELET COUNT 113 10^3/UL (140-415); RED BLOOD COUNT 4.18 10^6/ul (4.70-6.10); RED CELL DISTRIBUTION WIDTH 16.8 % (11.5-14.5)
[2018-03-06 07:42] LABS: MAGNESIUM 1.9 mg/dl (1.7-2.5)
[2018-03-06 07:49] LABS: ANION GAP 12 (5-13); BLOOD UREA NITROGEN 4 mg/dl (7-20); CALCIUM 8.6 mg/dl (8.4-10.2); CARBON DIOXIDE 24 mmol/L (21-31); CHLORIDE 106 mmol/L (97-110); CREATININE 0.63 mg/dl (0.61-1.24); Estimated GFR > 60 mL/min (>60); GLUCOSE 90 mg/dl (70-220); POTASSIUM 3.4 mmol/L (3.5-5.1); SODIUM 142 mmol/L (135-144)
[2018-03-06] MEDS: FOLIC ACID 1 MG TAB PO (08:24)
[2018-03-06] MEDS: METOPROLOL 50 MG TAB PO (08:24)
[2018-03-06] MEDS: MULTIVITAMINS THERAPEUTIC TAB PO (08:24)
[2018-03-06] MEDS: THIAMINE 100 MG TAB PO (08:24)
[2018-03-06] MEDS: ACETAMINOPHEN 325 MG TAB PO (08:24)
[2018-03-06] MEDS: POTASSIUM CHLORIDE (SR) 20 MEQ TAB PO (10:15)
== END 2018-03-06 12:36 | disposition home or self-care (01) | DRG 71 ==
LOC: E/R 17:03 → TEL 21:32
DX: G93.40 Encephalopathy, unspecified (principal); E87.2 Acidosis; E83.42 Hypomagnesemia; K74.60 Unspecified cirrhosis of liver; F10.20 Alcohol dependence, uncomplicated; K12.0 Recurrent oral aphthae; I10 Essential (primary) hypertension; F11.10 Opioid abuse, uncomplicated; E87.6 Hypokalemia; R44.1 Visual hallucinations; Y90.2 Blood alcohol level of 40-59 mg/100 ml; Z86.718 Personal history of other venous thrombosis and embolism; Z86.711 Personal history of pulmonary embolism
CPT/HCPCS: 36415; 70470; 71045; 80048; 80053; 80307; 81003; 82150; 82607; 82746; 82945; 83605; 83690; 83735; 84100; 84157; 84484; 85025; 85610; 85730; 87040; 87070; 87086; 87400; 89051; 90686; 93005; 96374; 96375; 99291-25

== ENCOUNTER 2018-05-05 23:42 | Inpatient (IN) | payer OTHER ==
[2018-05-06] MEDS: SOD CHLORIDE 0.9% 1,000 ML IV ×4 (01:33→23:30)
[2018-05-06] MEDS: ONDANSETRON 4 MG INJ IV (01:33)
[2018-05-06] MEDS: morphine 4 MG/ML VIAL IV ×6 (01:33→22:17)
[2018-05-06 01:42] LABS: ADD MAN DIFF? NO
[2018-05-06 01:49] LABS: BASOPHILS % 0.2 % (0.0-2.0); EOSINOPHILS % 0.2 % (0.0-7.0); HEMATOCRIT 42.2 % (42.0-52.0); HEMOGLOBIN 14.1 g/dl (14.0-18.0); LYMPHOCYTES # 1.3 10^3/ul (0.8-2.9); LYMPHOCYTES % 8.1 % (15.0-51.0); MEAN CORPUSCULAR HEMOGLOBIN 28.5 pg (29.0-33.0); MEAN CORPUSCULAR HGB CONC 33.4 g/dl (32.0-37.0); MEAN CORPUSCULAR VOLUME 85.3 fl (82.0-101.0); MEAN PLATELET VOLUME 11.3 fl (7.4-10.4); MONOCYTE # 0.7 10^3/ul (0.3-0.9); MONOCYTES % 4.1 % (0.0-11.0); NEUTROPHIL # 14.3 10^3/ul (1.6-7.5); PLATELET COUNT 312 10^3/UL (140-415); RED BLOOD COUNT 4.95 10^6/ul (4.70-6.10)
[2018-05-06 01:49] LABS: WHITE BLOOD COUNT 16.4 10^3/ul (4.8-10.8)
[2018-05-06 02:02] LABS: ADD UMIC NO; UR ASCORBIC ACID NEGATIVE (NEGATIVE); UR BILIRUBIN (Dip) NEGATIVE (NEGATIVE); UR BLOOD (Dip) NEGATIVE (NEGATIVE); UR CLARITY CLEAR (CLEAR); UR COLOR YELLOW (YELLOW); UR GLUCOSE (Dip) NEGATIVE (NEGATIVE); UR KETONES (Dip) TRACE mg/dL (NEGATIVE); UR LEUKOCYTE ESTERASE (Dip) NEGATIVE Leu/ul (NEGATIVE); UR NITRITE (Dip) NEGATIVE (NEGATIVE); UR SPECIFIC GRAVITY (Dip) 1.026 (1.003-1.030); UR TOTAL PROTEIN (Dip) NEGATIVE (NEGATIVE); UR UROBILINOGEN (Dip) 1+ mg/dL (NEGATIVE)
[2018-05-06 02:11] LABS: ALANINE AMINOTRANSFERASE 56 IU/L (13-69); ALBUMIN 4.7 g/dl (3.3-4.9); ALKALINE PHOSPHATASE 99 IU/L (42-121); ANION GAP 11 (5-13); ASPARTATE AMINO TRANSFERASE 40 IU/L (15-46); BILIRUBIN,INDIRECT 0.4 mg/dl (0-1.1); BILIRUBIN,TOTAL 0.4 mg/dl (0.2-1.3); BLOOD UREA NITROGEN 11 mg/dl (7-20); CARBON DIOXIDE 27 mmol/L (21-31); CHLORIDE 106 mmol/L (97-110); CREATININE 0.69 mg/dl (0.61-1.24); Estimated GFR > 60 mL/min (>60); GLUCOSE 144 mg/dl (70-220); LIPASE 811 U/L (23-300); POTASSIUM 3.7 mmol/L (3.5-5.1); SODIUM 144 mmol/L (135-144); TOTAL PROTEIN 8.3 g/dl (6.1-8.1)
[2018-05-06] MEDS ORDERED: ACETAMINOPHEN 325 MG TAB PO (07:30)
[2018-05-06] MEDS ORDERED: ONDANSETRON 4 MG INJ IV (07:30)
[2018-05-06] MEDS ORDERED: FOLIC ACID 1 MG TAB (07:50)
[2018-05-06] MEDS ORDERED: AMLODIPINE 10 MG TAB (07:51)
[2018-05-06] MEDS ORDERED: MULTIVITAMINS THERAPEUTIC TAB (07:51)
[2018-05-06] MEDS: METOPROLOL 50 MG TAB PO ×2 (08:05→20:28)
[2018-05-06] MEDS: AMLODIPINE 5 MG TAB PO ×2 (08:05→20:29)
[2018-05-06] MEDS: FOLIC ACID 1 MG TAB PO (08:05)
[2018-05-06] MEDS: MULTIVITAMINS THERAPEUTIC TAB PO (08:06)
[2018-05-06] MEDS: THIAMINE 100 MG TAB PO (08:06)
[2018-05-06] MEDS: PIPER-TAZO 3.375 GM IV (PMX) 100 ML IVPB ×2 (13:40→22:17)
[2018-05-07] MEDS: morphine 4 MG/ML VIAL IV ×3 (03:52→10:13)
[2018-05-07] MEDS: PIPER-TAZO 3.375 GM IV (PMX) 100 ML IVPB (05:27)
[2018-05-07] MEDS: SOD CHLORIDE 0.9% 1,000 ML IV (05:28)
[2018-05-07 05:45] LABS: ADD MAN DIFF? NO
[2018-05-07 05:52] LABS: WHITE BLOOD COUNT 4.5 10^3/ul (4.8-10.8)
[2018-05-07 05:52] LABS: BASOPHILS % 0.2 % (0.0-2.0); EOSINOPHILS # 0.1 10^3/ul (0.0-0.5); EOSINOPHILS % 1.6 % (0.0-7.0); HEMATOCRIT 36.8 % (42.0-52.0); LYMPHOCYTES # 1.4 10^3/ul (0.8-2.9); MEAN CORPUSCULAR HEMOGLOBIN 28.2 pg (29.0-33.0); MEAN CORPUSCULAR HGB CONC 32.6 g/dl (32.0-37.0); MEAN CORPUSCULAR VOLUME 86.6 fl (82.0-101.0); MEAN PLATELET VOLUME 11.7 fl (7.4-10.4); MONOCYTE # 0.4 10^3/ul (0.3-0.9); MONOCYTES % 8.7 % (0.0-11.0); NEUTROPHIL # 2.7 10^3/ul (1.6-7.5); NEUTROPHILS % 59.3 % (39.0-77.0); PLATELET COUNT 144 10^3/UL (140-415); RED BLOOD COUNT 4.25 10^6/ul (4.70-6.10); RED CELL DISTRIBUTION WIDTH 14.2 % (11.5-14.5)
[2018-05-07 06:12] LABS: ALANINE AMINOTRANSFERASE 33 IU/L (13-69); ALBUMIN 3.7 g/dl (3.3-4.9); ALBUMIN/GLOBULIN RATIO 1.15; ALKALINE PHOSPHATASE 67 IU/L (42-121); ANION GAP 4 (5-13); ASPARTATE AMINO TRANSFERASE 22 IU/L (15-46); BILIRUBIN,INDIRECT 0.5 mg/dl (0-1.1); BILIRUBIN,TOTAL 0.5 mg/dl (0.2-1.3); BLOOD UREA NITROGEN 4 mg/dl (7-20); CALCIUM 8.9 mg/dl (8.4-10.2); CARBON DIOXIDE 26 mmol/L (21-31); CHLORIDE 109 mmol/L (97-110); CREATININE 0.64 mg/dl (0.61-1.24); Estimated GFR > 60 mL/min (>60); GLUCOSE 88 mg/dl (70-220); LIPASE 112 U/L (23-300); POTASSIUM 4.1 mmol/L (3.5-5.1); SODIUM 139 mmol/L (135-144); TOTAL PROTEIN 6.9 g/dl (6.1-8.1)
[2018-05-07] MEDS: THIAMINE 100 MG TAB PO (10:00)
[2018-05-07] MEDS: INFLUENZA VIRUS VACCINE 0.5 ML (DISPENSING) IM* (10:00)
[2018-05-07] MEDS: FOLIC ACID 1 MG TAB PO (10:00)
[2018-05-07] MEDS: AMLODIPINE 5 MG TAB PO (10:01)
[2018-05-07] MEDS: MULTIVITAMINS THERAPEUTIC TAB PO (10:02)
[2018-05-07] MEDS: METOPROLOL 50 MG TAB PO (10:02)
== END 2018-05-07 16:15 | disposition home or self-care (01) | DRG 439 ==
LOC: E/R 23:42 → MS1 05-06 04:36
DX: K85.90 Acute pancreatitis without necrosis or infection, unspecified (principal); K86.3 Pseudocyst of pancreas; I10 Essential (primary) hypertension; Z86.711 Personal history of pulmonary embolism; E78.5 Hyperlipidemia, unspecified; Z79.01 Long term (current) use of anticoagulants; F10.11 Alcohol abuse, in remission
CPT/HCPCS: 36415; 74176; 74181; 76705; 80053; 81003; 83690; 85025; 90686; 96374; 96375; 99285-25